=== PATIENT | female | born 1990 | race Caucasian/White ===

== ENCOUNTER 2019-01-17 19:00 | Emergency (ER) | payer BC ==
[~2019-01-17] VITALS: Ht 160 cm; Wt 68.0 kg
[2019-01-17 19:04] VITALS: BP 140/89
== END 2019-01-17 19:39 | disposition home or self-care (01) ==
LOC: ER 19:10
DX: S06.0X0A Concussion without loss of consciousness, initial encounter (principal); S09.8XXA Other specified injuries of head, initial encounter; W22.8XXA Striking against or struck by other objects, initial encounter; Y93.89 Activity, other specified; Y92.89 Other specified places as the place of occurrence of the external cause; Y99.8 Other external cause status